=== PATIENT | male | born 1975 | race Caucasian/White ===

== ENCOUNTER 2016-08-11 14:57 | Emergency (ER) | payer OTHER ==
--- NOTE | ~2016-08-11 | CR72 ---
[facility] A Service of [facility] RADIOLOGY TEXT RESULTS PATIENT: CHIO AHMADI LOCATION: SED : 75 UNIT #: [id number] AGE: [address]: Pasha Maldonado MD SEX: M ORDER DR: [id number] [place] [id number] E MR#: [id number] Acc #: [id number] NAME: CHIO AHMADI : 1975 SEX: M STUDY DATE/TIME: 08/11/2016 14:39 UNIT: SED ROOM: STUDY DESCRIPTION: CR Chest Single View Portable Attending Physician: Pasha Maldonado M.D. Ordering Physician: Pasha Maldonado M.D. Primary Care Physician: No Primary Care Physician MEDICAL IMAGING REPORT This report is preliminary unless electronic signature is present. EXAM Portable chest. DATE OF EXAM 08/11/2016 HISTORY Cough in a patient with a history of overdose. Onset of symptoms today. TECHNIQUE A single AP view of the chest was obtained. COMPARISON Compared with 09/22/2002. FINDINGS A single AP portable view of the chest shows both lungs to be clear. The heart is normal in size. The mediastinal contour is normal. No significant bone abnormalities are seen. IMPRESSION Normal single view chest. Dictated by... Adam Trevino M.D. THIS IS AN ELECTRONICALLY VERIFIED REPORT Adam Trevino M.D. at 08/12/2016 8:20 AM RLF/jt [facility] A Service of [facility] RADIOLOGY TEXT RESULTS PATIENT: CHIO AHMADI LOCATION: SED : 75 UNIT #: [id number] AGE: [address]: Pasha Maldonado MD SEX: M ORDER DR: TD: 08/11/2016 21:29 JOB #: [id number] MEDICAL IMAGING REPORT
[2016-08-11 14:38] LABS: BASOPHIL% 0.6 % (0-2.5); EOSINOPHIL# 0.1 X10e3 (0-0.7); EOSINOPHIL% 1.4 % (0.0-7.0); HEMATOCRIT 45.7 % (38.0-50.0); HEMOGLOBIN 15.1 gm/dL (13.0-16.0); LYMPHOCYTE# 1.4 X10e3 (1.0-3.5); LYMPHOCYTE% 17.9 % (17.0-45.0); MEAN CELL VOLUME 85.6 FL (83-96); MEAN CORPUSCULAR HEMOGLOBIN 28.4 PG (28-34); MEAN CORPUSCULAR HGB CONC 33.1 g/dL (30-36); MONOCYTE# 0.9 X10e3 (0-1.0); MONOCYTE% 11.9 % (3.0-12.0); NEUTROPHIL# 5.5 X10e3 (1.5-7.1); NEUTROPHIL% 68.2 % (40-75); PLATELET COUNT 273 X10e3 (140-420); RED BLOOD COUNT 5.34 X10e (3.90-5.60); RED CELL DISTRIBUTION WIDTH 13.9 % (11.0-15.5)
[2016-08-11 14:39] LABS: DIFF IND NO
[~2016-08-11 14:57] MED LIST: NORCO1 TAB 10/3 PO
[2016-08-11 15:06] LABS: ALKALINE PHOSPHATASE 93 U/L (32-92); ALT (SGPT) 39 U/L (10-40); AST (SGOT) 25 U/L (10-42); BILIRUBIN, DIRECT 0.1 mg/dL (0.0-0.2); BILIRUBIN,INDIRECT 0.5 mg/dL (0.0-0.9); BILIRUBIN,TOTAL 0.6 mg/dL (0.2-2.0); BLOOD UREA NITROGEN 12 mg/dL (9-23); CALCIUM SERUM 8.7 mg/dL (8.4-10.2); CARBON DIOXIDE 26 mmol/L (22-31); CHLORIDE 102 mmol/L (100-111); CREATININE SERUM 1.1 mg/dL (0.6-1.4); GLOM FILT RATE Estimated ABOVE60 mL/min (>60); GLUCOSE FASTING 143 mg/dL (70-110); POTASSIUM 3.7 mmol/L (3.5-5.1); PROTEIN TOTAL SERUM 8.5 g/dL (6.0-8.3); SALICYLATE <4.0 mg/dL; SODIUM 135 mmol/L (135-145)
[2016-08-11 15:09] LABS: ACETAMINOPHEN <10 ug/mL; ALCOHOL BLOOD <5 mg/dL (0)
[2016-08-11 15:45] LABS: AMPHETAMINE POS (NEG); BARBITURATES NEG (NEG); BENZODIAZEPINES POS (NEG); COCAINE NEG (NEG); MARIJUANA NEG (NEG); OPIATES POS (NEG); TRICYCLIC ANTIDEPRESSANTS NEG (NEG); U METHADONE NEG (NEG)
== END 2016-08-11 16:28 | disposition home or self-care (01) ==
LOC: SED 14:57
PROVIDERS: Emergency Medicine
DX: T40.1X1A Poisoning by heroin, accidental (unintentional), initial encounter (principal); J20.9 Acute bronchitis, unspecified; F31.9 Bipolar disorder, unspecified; F17.210 Nicotine dependence, cigarettes, uncomplicated
CPT/HCPCS: 36415; 71010; 80048; 80076; 80307; 85025; 94640; 96361; 96374; 96375; 99284; G0480; J2405; J2930